=== PATIENT | female | born 1950 | race Caucasian/White ===

== ENCOUNTER 2016-10-05 12:32 | Day surgery (SDC) | payer OTHER ==
[~2016-10-05] VITALS: Ht 154.9 cm; Wt 86.9 kg
[~2016-10-05 12:32] MED LIST: ACET325T38 PO; AMLO5TAB4 PO; CALCIUM D3 PO; FAMO20TA18 PO; HYDR-3498 PO; HYDR12.53 PO; IBUP-1542 PO; LOSA100T7 PO; PRA20 PO; RANI150C11 PO; TRAM50TA2 PO
[2016-10-05 13:33] VITALS: Ht 154.9 cm; Wt 86.9 kg
[2016-10-05 13:34] VITALS: BP 178/86; PULSE 73; RESP 23
[2016-10-05] MEDS ORDERED: hypertension med (13:42)
[2016-10-05] MEDS ORDERED: [UNRECOGNIZED DRUG - OTHER] (13:42)
[2016-10-05] MEDS ORDERED: LEVO75TA5 PO (13:42)
[2016-10-05] MEDS ORDERED: [UNRECOGNIZED DRUG - OTHER] (13:42)
[2016-10-05 14:18] VITALS: BP 150/71; PULSE 60
[2016-10-05] MEDS ORDERED: FENTAnyl 50 MCG/ML VIAL ONE (14:29)
[2016-10-05] MEDS ORDERED: MIDAZOLAM 1 MG/ML 2 ML INJ ONE ×4 (14:30)
[2016-10-05 14:57] VITALS: BP 135/68; PULSE 60; RESP 18
--- NOTE | 2016-10-05 15:37 | GILP ---
DATE OF PROCEDURE: 10/05/2016 NAME OF PROCEDURES: 1. Esophagogastroduodenoscopy and biopsy. 2. Colonoscopy. SURGEON: Brianna Gustafson MD PREOPERATIVE DIAGNOSES: 1. Abdominal pain. 2. Screening colonoscopy. POSTOPERATIVE DIAGNOSES: 1. Gastritis. 2. Gastric polyps and biopsies were taken for histopathology. 3. Colonoscopy all the way to the cecum. 4. Diverticulosis of the colon. 5. Internal hemorrhoids. 6. No colon neoplasm was identified. INDICATION FOR THE PROCEDURE: Ms. Aimee Gill is a 65-year-old female patient who had upper abdominal pain, not responding to therapy. She also noticed a change in the bowel habit. She never had a scr eening colonoscopy. The patient was scheduled for endoscopy and colonoscopy. The procedures and possible complications were well explained to the patient. The patient understoo d and consented to the procedure. DESCRIPTION OF PROCEDURE: Under the influence of fentanyl and Versed, the gastroscope was carefully introduced into the esophagus and under direct vision, it was advanced to the stomach and through t he pylorus into the duodenal bulb and descending duodenum. FINDINGS: ESOPHAGUS: The mucosa was normal. STOMACH: The patient had gastritis. The patient also had gastric polyps and biopsies were taken fo r histopathology. DUODENUM: Normal. The colonoscope was carefully introduced in the rectum and under direct vision, it was advanced all the way to the cecum. FINDINGS: The patient had diverticulosis of the colon. She also had internal hemorrhoids. No colo n neoplasm was identified. IMPRESSION: 1. Gastritis. 2. Gastric polyps and biopsies were taken for histopathology. 3. Colonoscopy all the way to the cecum. 4. Diverticulosis of the colon. 5. Internal hemorrhoids. 6. No colon neoplasm was identified. PLAN: 1. Omeprazole 40 mg p.o. q.a.m. 2. Await histopathology report. 3. Next screening colonoscopy in 10 years. Dictated By: BRIANNA GUSTAFSON MD GD/NTS Conf#: [id number] DID#: [id number] CC: BRIANNA GUSTAFSON MD;*EndCC*
== END 2016-10-05 15:19 | disposition home or self-care (01) ==
LOC: MERGE 12:32 → GIL 12:32
PROVIDERS: ATTEND Internal Medicine Gastroenterology
DX: Z12.11 Encounter for screening for malignant neoplasm of colon (principal); K29.70 Gastritis, unspecified, without bleeding; K57.90 Diverticulosis of intestine, part unspecified, without perforation or abscess without bleeding; K64.8 Other hemorrhoids; I10 Essential (primary) hypertension; E11.9 Type 2 diabetes mellitus without complications
CPT/HCPCS: 43239; 45378; 82962; 88305; 88312; J2250; J3010; Z7610